=== PATIENT | male | born 1990 | race African-American/Black ===

== ENCOUNTER 2019-01-15 17:09 | Emergency (ER) | payer MEDICAID ==
[2019-01-15] MEDS ORDERED: Acetaminophen/HYDROcodone 325-5 MG Tab PO ONE (17:10)
[2019-01-15] MEDS ORDERED: Gentamicin 0.3% Ophth Soln 5 ML Bottle EYEBOTH ONE (17:10)
--- NOTE | 2019-01-15 17:52 | EDM.PDOC ---
ED HPI GENERAL MEDICAL PROBLEM - General Chief Complaint: Eye Problems Stated Complaint: L EYE ISSUE Time Seen by Provider: 01/15/19 17:09 Source of Information: Reports: Patient, Family History Limitations: Reports: No Limitations - History of Present Illness INITIAL COMMENTS - FREE TEXT/NARRATIVE: 28 y.o.w.m came to the Ed because of left eye pain and decreased vision on that eye. Pt took his contact lenses out yesterday and felt pain at his left eye then. Pt had pain all night in his left eye and decided to come to the ED this PM. Visual activity was at his left eye 20/50 and at his right eye 20/20, no N/V /D no F/C no other acute medical issues. BP 155/93 Pulse 75 RR 17 Pulse ox 100% on RA Temp 36.8 Onset Date: 01/14/19 Onset Time: 08:00 Duration: Day(s): Location: Reports: Face (left eye) Quality: Reports: Dull, Sharp Severity: Moderate Improves with: Reports: Rest Worsens with: Reports: Movement (of left eye) Context: Reports: Trauma (through contact lense) Associated Symptoms: Reports: No Other Symptoms - Related Data Allergies Allergy/AdvReac Type Severity Reaction Status Date / Time No Known Allergies Allergy Verified 01/15/19 19:30 Home Meds: Home Meds NK [No Known Home Meds] 01/15/19 [History] ED ROS GENERAL - Review of Systems Review Of Systems: See Below Constitutional: Reports: No Symptoms HEENT: Reports: Eye Pain (left eye pain) Respiratory: Reports: No Symptoms Cardiovascular: Reports: No Symptoms Endocrine: Reports: No Symptoms GI/Abdominal: Reports: No Symptoms : Reports: No Symptoms Musculoskeletal: Reports: No Symptoms Skin: Reports: No Symptoms Neurological: Reports: No Symptoms Psychiatric: Reports: No Symptoms Hematologic/Lymphatic: Reports: No Symptoms Immunologic: Reports: No Symptoms ED EXAM GENERAL W FULL EYE - Physical Exam Exam: See Below Exam Limited By: No Limitations General Appearance: Alert, WD/WN, Mild Distress Eye Exam: Left Eye: Conjunctival Injection, Corneal Abrasion Visual Acuity (R) 20/: 20 Visual Acuity (L) 20/: 50 Eyelids: Bilateral: Normal Appearance Conjunctiva & Sclera: Left: Injected Cornea Exam: Left: Corneal Abrasion, Corneal Ulcer, Examined with Flourescein Extraocular Movements: Bilateral: Intact Pupillary Size: Bilateral: 3 mm Pupillary Reaction: Bilateral: Brisk Anterior Chamber: Bilateral: Normal Appearance Ears: Normal External Exam Nose: Normal Inspection Throat/Mouth: Normal Inspection Head: Atraumatic, Normocephalic Neck: Normal Inspection, Supple, Non-Tender Respiratory/Chest: No Respiratory Distress, Lungs Clear Cardiovascular: Normal Peripheral Pulses GI/Abdominal: Normal Bowel Sounds (Male) Exam: Deferred (Female) Exam: Deferred Rectal (Males) Exam: Deferred Rectal (Female) Exam: Deferred Back Exam: Normal Inspection Extremities: Normal Inspection, Normal Range of Motion Neurological: Alert, Oriented, CN II-XII Intact, Normal Cognition, Normal Gait Psychiatric: Normal Affect, Normal Mood Skin Exam: Warm, Dry, Intact, Normal Color Lymphatic: No Adenopathy Course - Vital Signs Text/Narrative:: 28 y.o.w.m came to the Ed because of left eye pain and decreased vision on that eye. Pt took his contact lenses out yesterday and felt pain at his left eye then. Pt had pain all night in his left eye and decided to come to the ED this PM. Visual activity was at his left eye 20/50 and at his right eye 20/20, no N/V /D no F/C no other acute medical issues. BP 155/93 Pulse 75 RR 17 Pulse ox 100% on RA Temp 36.8 PE: WNWD W M with left eye pain and decreased vision on that eye. Procedure: Tetracaine drops, Fluorescein blue light: Centered corneal abrasion Impression: Corneal abrasion, conjunctivitis left eye Tx: Gentamicin eye drops, Vicodin Reexam: Some improvement Plan: D/C with instructions 01/16/2019 10.00 am Consultation: , Manager Culinary: Dora Hernandez: Can see the pt today -01/16/2019-at noon at 0017 [facility] 10.20 am Pt confirmed, he will see Dr. Perkins, eye doctorm at noon today. 1.54 pm: F/U call: Pt showed up at Dr. Perkins's office: central corneal ulcer Last Recorded V/S: Last Vital Signs Temp 36.5 C 01/15/19 17:30 Pulse 75 01/15/19 17:30 Resp 17 01/15/19 17:30 BP 155/93 H 01/15/19 17:30 Pulse Ox 100 01/15/19 17:30 Departure - Departure Time of Disposition: 17:47 Disposition: Home, Self-Care 01 Condition: Good Clinical Impression: Corneal abrasion, left, Acute conjunctivitis, left eye - Discharge Information Instructions: Corneal Abrasion, Bacterial Conjunctivitis Referrals: PCP,None [Primary Care Provider] - Forms: ED Department Discharge Additional Instructions: Please apply 3 drops Gentamicin into left eye every 4 hours X4 then every 8 hours for days. If the symptoms have not been completely subsided in next 24 hours, please f/u with an eye doctor immediately. Please take Motrin/Vicodin for severe pain.
== END 2019-01-15 18:05 | disposition home or self-care (01) ==
LOC: FB.ED 17:09
DX: S05.02XA Injury of conjunctiva and corneal abrasion without foreign body, left eye, initial encounter (principal); H10.32 Unspecified acute conjunctivitis, left eye; X58.XXXA Exposure to other specified factors, initial encounter
CPT/HCPCS: 99282; A9270-GY